=== PATIENT | male | born 1995 | race Caucasian/White ===

== ENCOUNTER 2020-07-30 02:01 | Emergency (ER) | payer SELFPAY ==
--- OUTSIDE RECORDS SUMMARY | 2020-07-30 02:04 | XMS REPORT | Continuity of Care Document ---
:1995 Author Organization [facility] t Address [address] [place] [address] Care Team Providers Name Role Phone Kaleigh MONO, Imani Vergara Attending Clinician Doctor Unassigned, Name Attending Clinician Unavailable Problems This patient has no known problems. Allergies, Adverse Reactions, Alerts This patient has no known allergies or adverse reactions. Medications This patient has no known medications. Procedures This patient has no known procedures. Encounters Start End Encounter Admission Attending Care Care Encounter Source Date/Time Date/Time Type Type Clinicians Facility Department ID 2019-07-26 2019-07-26 Emergency [facility] [id number] 14:37:00 17:00:00 Imani Young [id number] [place] [id number] [place] [id number] 2019-07-26 2019-07-26 Orders Doctor SHANNON [id number] 00:00:00 00:00:00 Only UnassignedJOSIAH [id number] [place] [facility] [id number] Results This patient has no known results.
[2020-07-30] MEDS ORDERED: ASPIRIN EC 81 MG TAB PO ONE (03:25)
[2020-07-30 03:43] LABS: Absolute Lymphocytes (CBC) 3.5 K/uL (0.7-4.9); Basophils % 0.6 % (0-1.3); Hematocrit 37.9 % (39.6-49.0); MPV 9.5 fL (7.6-11.3); RBC Red Blood Cell Count 4.14 M/uL (4.33-5.43)
[2020-07-30] MEDS ORDERED: ALBUTEROL INHALER 60 PUFF/8 GM IH ONE (03:47)
[2020-07-30 04:00] LABS: ALT/SGPT 30 U/L (12-78); AST/SGOT 15 U/L (15-37); Albumin 3.5 g/dL (3.4-5.0); Alkaline Phosphatase 79 U/L (45-117); BUN Blood Urea Nitrogen 17 mg/dL (7-18); Bicarbonate 26 mmol/L (21-32); Bilirubin Direct 0.1 mg/dL (0-0.2); Bilirubin Total 0.4 mg/dL (0.2-1.0); Glucose Level 95 mg/dL (74-106); Magnesium 2.1 mg/dL (1.8-2.4); NT PRO-BNP 90 pg/mL (<125); Potassium 3.7 mmol/L (3.5-5.1); Protein, Total 7.1 g/dL (6.4-8.2); Sodium Level 142 mmol/L (136-145); Troponin (Emerg Dept Use Only) < 0.02 ng/mL (0.0-0.045)
[2020-07-30] MEDS ORDERED: AZITHROMYCIN 250 MG TAB ONE (04:16)
[2020-07-30 04:28] LABS: SARS-COV-2 RT PCR NEGATIVE (NEGATIVE)
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
--- NOTE | 2020-07-30 07:51 | RAD REPORT ---
EXAM DESCRIPTION: Bong Single View07/30/2020 3:27 am CLINICAL HISTORY: Cough COMPARISON: 2016 FINDINGS: The lungs appear clear of acute infiltrate. The heart is normal size IMPRESSION: No acute abnormalities displayed
--- NOTE | 2020-07-30 12:46 | EKG ---
Test Date: 2020-07-30 Test Time: 03:19:31 Clinical Evaluator: MEASUREMENT RESULTS: Intervals: Rate: 48 IN: 150 QRSD: 96 QT: 410 QTc: 366 Ball: P: 21 IN: 150 QRS: 14 T: 25 INTERPRETIVE STATEMENTS: Marked sinus bradycardia with sinus arrhythmia Abnormal ECG Compared to ECG 07/22/2016 03:42:06 Sinus rhythm no longer present Electronically Signed On 07-30-20 12:45:17 CDT by Jonatan lOivier
== END 2020-07-30 04:49 | disposition home or self-care (01) ==
LOC: ER 02:01
DX: J02.9 Acute pharyngitis, unspecified (principal); Z20.822 Contact with and (suspected) exposure to COVID-19; Z72.0 Tobacco use; Z71.6 Tobacco abuse counseling
CPT/HCPCS: 0240U; 36415; 71045; 80048; 80076; 83735; 83880; 84484; 85025; 85379; 87070; 87081; 93005; 99284

== ENCOUNTER 2021-10-08 11:34 | Emergency (ER) | payer SELFPAY ==
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
[2021-10-08 13:05] LABS: Absolute Lymphocytes (CBC) 2.5 K/uL (0.7-4.9); Hematocrit 40.7 % (39.6-49.0); Lymphocytes % 23.3 % (15.3-44.8); MPV 8.9 fL (7.6-11.3)
[2021-10-08 13:17] LABS: Potassium 3.9 mmol/L (3.5-5.1)
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
[2021-10-08 14:32] VITALS: BP 148/80; TEMP 98.1; O2SAT 97
--- NOTE | 2021-10-10 08:58 | EKG ---
Test Date: 2021-10-08 Test Time: 13:42:47 Food Service Lead: [place]IGH MEASUREMENT RESULTS: Intervals: Rate: 53 AL: 146 QRSD: 96 QT: 426 QTc: 399 [place]: P: 25 AL: 146 QRS: 13 T: 36 INTERPRETIVE STATEMENTS: Sinus bradycardia with sinus arrhythmia Otherwise normal ECG Compared to ECG 07/30/2020 03:19:31 No significant changes Electronically Signed On 10-10-21 08:55:36 CDT by Jonatan Olivier
== END 2021-10-08 13:55 | disposition home or self-care (01) ==
LOC: ER 11:34
DX: R42 Dizziness and giddiness (principal); R03.0 Elevated blood-pressure reading, without diagnosis of hypertension; F17.210 Nicotine dependence, cigarettes, uncomplicated
CPT/HCPCS: 36415; 80048; 85025; 93005; 99283

== ENCOUNTER 2021-11-10 18:05 | Emergency (ER) | payer SELFPAY ==
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
[2021-11-10 21:01] VITALS: BP 121/57; TEMP 98.4; O2SAT 97
== END 2021-11-10 20:40 | disposition left against medical advice (07) ==
LOC: ER 18:05
DX: M54.2 Cervicalgia (principal); R51.9 Headache, unspecified; Z53.21 Procedure and treatment not carried out due to patient leaving prior to being seen by health care provider

== ENCOUNTER 2021-12-23 13:03 | Emergency (ER) | payer SELFPAY ==
--- OUTSIDE RECORDS SUMMARY | 2021-12-23 13:06 | XMS REPORT | Continuity of Care Document ---
:1995 Author Organization [facility] t Address [address] [place] [address] Care Team Providers Name Role Phone Pcp, Patient Does Not Have A Primary Care Physician [id number] DB ELLIS Attending Clinician Unavailable Db Ellis MD Attending Clinician Zainab Farris NP Attending Clinician ZAINAB FARRIS Attending Clinician Unavailable Doctor Unassigned, Severy Attending Clinician Unavailable ZAINAB FARRIS Admitting Clinician Unavailable Problems Condition Condition Condition Status Onset Resolution Last Treating Co mments Source Name Details Category Date Date Treatment Clinician Date No known No known Disease Unive rs active active ity of problems problems [facility] Allergies, Adverse Reactions, Alerts Allergy Allergy Status Severity Reaction(s) Onset Inactive Treating Comm ents Source Name Type Date Date Clinician NO KNOWN Drug Active Univers ALLERGIE Class ity of S [facility] Social History Social Habit Start Date Stop Date Quantity Comments Source Exposure to 2021-11-06 2021-11-16 Not sure [facility] SARS-CoV-2 (event) 00:00:00 03:13:00 Medica l Branch Sex Ass[birth year] [facility] [place] 00:00:00 00:00:00 Medical Branch Smoking Status Start Date Stop Date Source Tobacco smoking consumption Univ [facility] unknown Branch Medications Ordered Filled Start Stop Current Ordering Indication Dosage Frequency Signature Comments Components Source Medication Medication Date Date Medication? Clinician (SIG) Name Name amoxicillin Yes [id number] 500mg Take 1 Univers 500 mg 7-25 capsule by ity of capsule 00:00: mouth in [place] 00 the Medical morning Branch and 1 capsule at noon and 1 capsule in the evening. ibuprofen Yes [id number] 800mg Take 1 Univers 800 mg 7-25 tablet by ity of tablet 00:00: mouth [place] 00 every 8 Medical (eight) Branch hours as needed for Pain (scale 4-6). cephALEXin 2019- No [id number] 500mg Take 1 Univers (KEFLEX) 07-25 [id number] capsule by it y of 500 mg 00:00: 04:59 mouth 3 [place] capsule 00 :00 (three) Medical times Branch daily for 4 days. ibuprofen 2019- No [id number] 800mg Take 1 Univers 800 mg 07-25 [id number] tablet by ity o f tablet 00:00: 04:59 mouth 3 [place] 00 :00 (three) Medical times Branch daily with meals for 4 days. traMADOL Yes [id number] 50mg Take 1 Uni vers (ULTRAM) 50 4-11 tablet by ity of mg tablet 00:00: mouth [place] 00 every 6 Medical (six) Branch hours as needed for Pain (scale 4-6). traMADOL 2019- No [id number] 50mg Take 1 Un tabitha (ULTRAM) 50 4-11 04-02 tablet by it y of mg tablet 00:00: 00:00 mouth [place] 00 :00 every 6 Medical (six) Branch hours as needed for Pain (scale 4-6). Immunizations Ordered Filled Immunization Date Status Comments [facility] e Immunization Name Name Td 2015-05-11 Completed University 00:00:00 [facility] Td 2015-05-11 Completed University 00:00:00 [facility] Td 2015-05-11 Completed [facility] 00:00:00 [facility] Vital Signs Vital Name Observation Time Observation Value Comments Source Systolic blood 2021-11-16 08:14:00 155 mm[Hg] Univer sity of pressure [facility] Diastolic blood 2021-11-16 08:14:00 91 mm[Hg] Unive rsity of pressure [facility] Heart rate 2021-11-16 08:14:00 63 /min [facility] [place] [facility] Body temperature 2021-11-16 08:14:00 36.5 Mireya [facility] [place] [facility] Respiratory rate 2021-11-16 08:14:00 18 /min [facility] [place] [facility] Body height 2021-11-16 08:14:00 190.5 cm [facility] [place] [facility] Body weight 2021-11-16 08:14:00 131.09 kg [facility] [place] [facility] BMI 2021-11-16 08:14:00 36.12 kg/m2 [facility] [place] [facility] Oxygen saturation in 2021-11-16 08:14:00 98 /min University of Arterial blood by [place] [employer] leon Pulse oximetry Branch Systolic blood 2019-07-26 21:40:00 149 mm[Hg] Univer sity of pressure [place] [facility] Diastolic blood 2019-07-26 21:40:00 95 mm[Hg] Unive rsity of pressure [place] [facility] Heart rate 2019-07-26 21:40:00 76 /min [facility] [place] [facility] Respiratory rate 2019-07-26 21:40:00 18 /min [facility] [place] [facility] Oxygen saturation in 2019-07-26 21:40:00 96 /min University of Arterial blood by [place] [employer] leon Pulse oximetry Branch Body temperature 2019-07-26 19:34:00 36.78 Mireya [facility] [place] [facility] Body weight 2019-07-26 19:34:00 127.007 kg [facility] [place] [facility] BMI 2019-07-26 19:34:00 35.95 kg/m2 [facility] [place] [facility] Systolic blood 2019-07-26 21:40:00 149 mm[Hg] Univer sity of pressure [place] [facility] Diastolic blood 2019-07-26 21:40:00 95 mm[Hg] Unive rsity of pressure [place] [facility] Heart rate 2019-07-26 21:40:00 76 /min [facility] [place] [facility] Respiratory rate 2019-07-26 21:40:00 18 /min [facility] [place] [facility] Oxygen saturation in 2019-07-26 21:40:00 96 /min University of Arterial blood by [place] [employer] leon Pulse oximetry Branch Body temperature 2019-07-26 19:34:00 36.78 Mireya [facility] Body weight 2019-07-26 19:34:00 127.007 kg [facility] BMI 2019-07-26 19:34:00 35.95 kg/m2 [facility] Procedures Procedure Date / Time Performed Performing Clinician [facility] e CONSENT/REFUSAL FOR 2021-11-16 08:11:01 Doctor Unassigned, No [facility] [place] DIAGNOSIS AND Name [facility] TREATMENT XR HAND 3+ VW LEFT 2019-07-26 20:10:54 Zainab Farris [facility] CONSENT/REFUSAL FOR 2019-07-26 19:24:53 Doctor Unassigned, No [facility] [place] DIAGNOSIS AND Name [facility] TREATMENT NOTICE OF PRIVACY 2019-07-26 19:24:37 Doctor Unassigned, No [facility] PRACTICES Name [facility] Encounters Start End Encounter Admission Attending Care Care Encounter Source Date/Time Date/Time Type Type Clinicians Facility Department ID 2021-11-16 2021-11-16 Emergency X [facility] ERT [id number] Univers 03:19:00 03:56:00 DB dickson [facility] [place] [facility] 2021-11-16 2021-11-16 Emergency [facility] [id number] Univers 03:19:00 03:56:00 Indyjinagreer Oneill CRIS [id number] ity of [facility] [id number] [facility] [id number] [place] [address] Branch 2019-07-26 2019-07-26 Emergency [facility] [id number] 14:37:00 17:00:00 Zainab Young [id number] [place] [id number] [place] [address] [id number] 2019-07-26 2019-07-[address] [facility] ERT [id number] Univers 14:37:00 17:00:00 ZAINAB dickson [facility] [place] [facility] 2019-07-26 2019-07-26 Emergency [facility] [id number] Univers 14:37:00 17:00:00 Zainab Young [id number] ity of [place] [id number] [facility] [id number] [facility] 084 Branch 2019-07-26 2019-07-26 Orders Doctor MIRTHA [id number] 00:00:00 00:00:00 Only Unassigned, JOSIAH [id number] [place]very [facility] [id number] 2019-07-26 2019-07-26 Orders Doctor MIRTHA [id number] Univers 00:00:00 00:00:00 Only Unassigned, JOSIAH [id number] ity of [place] [facility] [id number] [facility] [id number] [facility] 009 Branch Results Test Description Test Time Test Comments Results Result [facility] e Comments XR HAND 3+ VW 2019-07-26 HISTORY: Rule out Univ ersity of LEFT 20:21:16 foreign body. [place] Medic al FINDINGS: AP, Branch lateral, oblique [...]
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
[2021-12-23 15:54] VITALS: BP 114/86; TEMP 99.8
[2021-12-23 15:56] VITALS: O2SAT 99
== END 2021-12-23 14:58 | disposition home or self-care (01) ==
LOC: ER 13:03
DX: U07.1 COVID-19 (principal); F17.210 Nicotine dependence, cigarettes, uncomplicated
CPT/HCPCS: 87804; U0003

== ENCOUNTER 2021-12-30 01:36 | Emergency (ER) | payer SELFPAY ==
--- OUTSIDE RECORDS SUMMARY | 2021-12-30 01:40 | XMS REPORT | Continuity of Care Document ---
:1995 Author Organization [facility] t Address [address] [place] [address] Care Team Providers Name Role Phone Pcp, Patient Does Not Have A Primary Care Physician [id number] DB ELLIS Attending Clinician Unavailable Db Ellis MD Attending Clinician Zainab Farris NP Attending Clinician ZAINAB FARRIS Attending Clinician Unavailable Doctor Unassigned, [place] Attending Clinician Unavailable ZAINAB FARRIS Admitting Clinician Unavailable Problems Condition Condition Condition Status Onset Resolution Last Treating Co mments Source Name Details Category Date Date Treatment Clinician Date No known No known Disease Unive rs active active ity of problems problems [facility] Allergies, Adverse Reactions, Alerts Allergy Allergy Status Severity Reaction(s) Onset Inactive Treating Comm ents Source Name Type Date Date Clinician NO KNOWN Drug Active Univers ALLERGIE Class ity of S [facility] Social History Social Habit Start Date Stop Date Quantity Comments Source Exposure to 2021-11-06 2021-11-16 Not sure [facility] SARS-CoV-2 (event) 00:00:00 03:13:00 Medica l Branch Sex Ass[birth year] [facility] [place] 00:00:00 00:00:00 Medical Branch Smoking Status Start Date Stop Date Source Tobacco smoking consumption Univ [facility] unknown Branch Medications Ordered Filled Start Stop Current Ordering Indication Dosage Frequency Signature Comments Components Source Medication Medication Date Date Medication? Clinician (SIG) Name Name amoxicillin Yes [id number] 500mg Take 1 Univers 500 mg 7-25 capsule by ity of capsule 00:00: mouth in [place] 00 the Medical morning Branch and 1 capsule at noon and 1 capsule in the evening. ibuprofen Yes [id number] 800mg Take 1 Univers 800 mg 7-25 tablet by ity of tablet 00:00: mouth [place] 00 every 8 Medical (eight) Branch hours as needed for Pain (scale 4-6). cephALEXin 2019- No [id number] 500mg Take 1 Univers (KEFLEX) 07-25 [id number] capsule by it y of 500 mg 00:00: 04:59 mouth 3 [place] capsule 00 :00 (three) Medical times Branch daily for 4 days. ibuprofen 2019- No [id number] 800mg Take 1 Univers 800 mg 07-25 [id number] tablet by ity o f tablet 00:00: 04:59 mouth 3 [place] 00 :00 (three) Medical times Branch daily with meals for 4 days. traMADOL Yes [id number] 50mg Take 1 Uni vers (ULTRAM) 50 4-11 tablet by ity of mg tablet 00:00: mouth [place] 00 every 6 Medical (six) Branch hours as needed for Pain (scale 4-6). traMADOL 2019- No [id number] 50mg Take 1 Un tabitha (ULTRAM) 50 4-11 04-02 tablet by it y of mg tablet 00:00: 00:00 mouth [place] 00 :00 every 6 Medical (six) Branch hours as needed for Pain (scale 4-6). Immunizations Ordered Filled Immunization Date Status Comments [facility] e Immunization Name Name Td 2015-05-11 Completed University 00:00:00 [facility] Td 2015-05-11 Completed University 00:00:00 [facility] Td 2015-05-11 Completed [facility] 00:00:00 [facility] Vital Signs Vital Name Observation Time Observation Value Comments Source Systolic blood 2021-11-16 08:14:00 155 mm[Hg] Univer sity of pressure [facility] Diastolic blood 2021-11-16 08:14:00 91 mm[Hg] Unive rsity of pressure [facility] Heart rate 2021-11-16 08:14:00 63 /min [facility] [place] [facility] Body temperature 2021-11-16 08:14:00 36.5 Mireya [facility] [place] [facility] Respiratory rate 2021-11-16 08:14:00 18 /min [facility] [place] [facility] Body height 2021-11-16 08:14:00 190.5 cm [facility] [place] [facility] Body weight 2021-11-16 08:14:00 131.09 kg [facility] [place] [facility] BMI 2021-11-16 08:14:00 36.12 kg/m2 [facility] [place] [facility] Oxygen saturation in 2021-11-16 08:14:00 98 /min University of Arterial blood by [place] [employer] [facility] Pulse oximetry Branch Systolic blood 2019-07-26 21:40:00 149 mm[Hg] Univer sity of pressure [place] [facility] Diastolic blood 2019-07-26 21:40:00 95 mm[Hg] Unive rsity of pressure [place] [facility] Heart rate 2019-07-26 21:40:00 76 /min [facility] [place] [facility] Respiratory rate 2019-07-26 21:40:00 18 /min [facility] [place] [facility] Oxygen saturation in 2019-07-26 21:40:00 96 /min University of Arterial blood by [place] [employer] [facility] Pulse oximetry Branch Body temperature 2019-07-26 19:34:00 36.78 Mireya [facility] [place] [facility] Body weight 2019-07-26 19:34:00 127.007 kg [facility] [place] [facility] BMI 2019-07-26 19:34:00 35.95 kg/m2 [facility] [place] [facility] Systolic blood 2019-07-26 21:40:00 149 mm[Hg] Univer sity of pressure [place] [facility] Diastolic blood 2019-07-26 21:40:00 95 mm[Hg] Unive rsity of pressure [place] [facility] Heart rate 2019-07-26 21:40:00 76 /min [facility] [place] [facility] Respiratory rate 2019-07-26 21:40:00 18 /min [facility] [place] [facility] Oxygen saturation in 2019-07-26 21:40:00 96 /min University of Arterial blood by [place] [employer] [facility] Pulse oximetry Branch Body temperature 2019-07-26 19:34:00 36.78 [facility] Body weight 2019-07-26 19:34:00 127.007 kg [facility] BMI 2019-07-26 19:34:00 35.95 kg/m2 [facility] Procedures Procedure Date / Time Performed Performing Clinician [facility] e CONSENT/REFUSAL FOR 2021-11-16 08:11:01 Doctor Unassigned, No [facility] [place] DIAGNOSIS AND Name [facility] TREATMENT XR HAND 3+ VW LEFT 2019-07-26 20:10:54 Zainab Farris [facility] CONSENT/REFUSAL FOR 2019-07-26 19:24:53 Doctor Unassigned, No [facility] [place] [facility] AND Name [facility] TREATMENT NOTICE OF PRIVACY 2019-07-26 19:24:37 Doctor Unassigned, No [facility] PRACTICES Name [facility] Encounters Start End Encounter Admission Attending Care Care Encounter Source Date/Time Date/Time Type Type Clinicians Facility Department ID 2021-11-16 2021-11-16 Emergency X [facility] ERT [id number] Univers 03:19:00 03:56:00 DB dickson [facility] 2021-11-16 2021-11-16 Emergency [facility] [id number] Univers 03:19:00 03:56:00 Indyjinagreer Oneill CRIS [id number] ity of [facility] [id number] [facility] [id number] [place] [address] Branch 2019-07-26 2019-07-26 Emergency [facility] [id number] 14:37:00 17:00:00 Zainab oYung [id number] [place] [id number] [place] [address] [id number] 2019-07-26 2019-07-26 Emergency X [facility] ERT [id number] Univers 14:37:00 17:00:00 ZAINAB dickson [facility] 2019-07-26 2019-07-26 Emergency [facility] [id number] Univers 14:37:00 17:00:00 Zainab Young [id number] ity of [place] [id number] [facility] [id number] [facility] 084 Branch 2019-07-26 2019-07-26 Orders Doctor MIRTHA [id number] 00:00:00 00:00:00 Only Unassigned, JOSIAH [id number] [place] [facility] [id number] 2019-07-26 2019-07-26 Orders Doctor MIRTHA [id number] Univers 00:00:00 00:00:00 Only Unassigned, JOSIAH [id number] ity of [place] [facility] [id number] [facility] [id number] [facility] 009 Branch Results Test Description Test Time Test Comments Results Result [facility] e Comments XR HAND 3+ VW 2019-07-26 HISTORY: Rule out Univ ersity of LEFT 20:21:16 foreign body. [place] Medic al FINDINGS: AP, Branch lateral, oblique [...]
[2021-12-30] MEDS ORDERED: KETOROLAC 30 MG/ML INJ ONE (02:45)
[2021-12-30] MEDS ORDERED: ONDANSETRON 4 MG/2 ML VIAL ONE (02:45)
[2021-12-30] MEDS ORDERED: CEFTRIAXONE 2000 MG/VIAL ONE (02:45)
[2021-12-30] MEDS ORDERED: CLINDAMYCIN 900MG/D5W 900 MG/50 ML IVPB IV ONE (02:46)
[2021-12-30 02:54] LABS: Absolute Lymphocytes (CBC) 3.3 K/uL (0.7-4.9); Hematocrit 40.6 % (39.6-49.0); Lymphocytes % 23.2 % (15.3-44.8); MCV 91.2 fL (80-100); MPV 9.3 fL (7.6-11.3); RBC Red Blood Cell Count 4.45 M/uL (4.33-5.43)
[2021-12-30 03:05] LABS: Albumin 3.8 g/dL (3.4-5.0); Bilirubin Total 0.5 mg/dL (0.2-1.0); Potassium 3.7 mmol/L (3.5-5.1); Protein, Total 7.3 g/dL (6.4-8.2)
[2021-12-30] MEDS ORDERED: MORPHINE 4 MG/ML SYR ONE (04:07)
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
[2021-12-30 06:42] VITALS: TEMP 98.8
[2021-12-30 06:56] VITALS: BP 125/90; O2SAT 98
--- NOTE | 2021-12-30 12:31 | RAD REPORT ---
EXAM DESCRIPTION: CT - Facial Bones W Con Mpr - 12/30/2021 6:55 am CLINICAL HISTORY: The patient is 26 years old and is Male; FACIAL ABSCESS TECHNIQUE: Axial computed tomography images of the face with intravenous contrast. Sagittal and co bib reformatted images were created and reviewed. This CT exam was performed using one or more of the following dose reduction techniques: automated exposure control, adjustment of the mA and/or k V according to patient size, and/or use of iterative reconstruction technique. COMPARISON: No relevant prior studies available. FINDINGS: Bones/joints: Previous right cranial surgery. No acute fracture. Soft tissues: Left perimandibular soft tissue swelling/edema. No definite soft tissue abscess. Orbits: Unremarkable. Sinuses: Left maxillary sinus mucosal thickening. No air-fluid levels. Dental: Bilateral mandibular and maxillary dental caries. No definite cortical breakthrough. Right maxillary tooth extractions. IMPRESSION: 1. Left perimandibular soft tissue swelling/edema. No definite soft tissue abscess. 2. Bilateral mandibular and maxillary dental caries. No cortical breakthrough identified. 3. Left maxillary sinus mucosal thickening. 4. Previous right cranial surgery. Electronically signed by: Anh Stephens MD 12/30/2021 5:57 AM CDT Due to temporary technical issues with the PACS/Fluency reporting system, reports are being signed by the in house radiologists without review as a courtesy to insure prompt reporting. The interpreting radiologist is fully responsible for the content of the report.
== END 2021-12-30 05:14 | disposition home or self-care (01) ==
LOC: ER 01:36
DX: K02.7 Dental root caries (principal); K02.9 Dental caries, unspecified; D72.829 Elevated white blood cell count, unspecified; F17.210 Nicotine dependence, cigarettes, uncomplicated
CPT/HCPCS: 36415; 70487; 76377; 80053; 85025; 96374; 96375; 99284; J0696; J2405; Q9967

== ENCOUNTER 2022-12-16 20:30 | Emergency (ER) | payer SELFPAY ==
--- OUTSIDE RECORDS SUMMARY | 2022-12-16 20:33 | XMS REPORT | Continuity of Care Document ---
:1995 Author Organization [facility] t Address [address] [place]. [address] [place] [address] Care Team Providers Name Role Phone Pcp, Patient Does Not Have A Primary Care Physician +[phone] DB ELLIS Attending Clinician Unavailable Db Ellis MD Attending Clinician Zainab Farris NP Attending Clinician ZAINAB FARRIS Attending Clinician Unavailable Doctor Unassigned, Forbes Attending Clinician Unavailable ZAINAB FARRIS Admitting Clinician Unavailable Problems Condition Condition Condition Status Onset Resolution Last Treating Co mments Source Name Details Category Date Date Treatment Clinician Date No known No known Disease Unive rs active active ity of problems problems [facility] Allergies, Adverse Reactions, Alerts Allergy Allergy Status Severity Reaction(s) Onset Inactive Treating Comm ents Source Name Type Date Date Clinician NO KNOWN Drug Active Univers ALLERGIE Class ity of S [facility] Social History Social Habit Start Date Stop Date Quantity Comments Source Exposure to 2021-11-06 2021-11-16 Not sure [facility] SARS-CoV-2 (event) 00:00:00 03:13:00 Medica l Branch Sex Assigned At [birth year] [facility] [place] 00:00:00 00:00:00 Medical Branch Smoking Status Start Date Stop Date Source Tobacco smoking consumption Univ [facility] unknown Branch Medications Ordered Filled Start Stop Current Ordering Indication Dosage Frequency Signature Comments Components Source Medication Medication Date Date Medication? Clinician (SIG) Name Name amoxicillin Yes [id number] 500mg Take 1 Univers 500 mg 7-25 capsule by ity of capsule 00:00: mouth in [place] 00 the Medical morning Branch and 1 capsule at noon and 1 capsule in the evening. ibuprofen Yes [id number] 800mg Take 1 Univers 800 mg 7-25 tablet by ity of tablet 00:00: mouth [place] 00 every 8 Medical (eight) Branch hours as needed for Pain (scale 4-6). cephALEXin 2019- No [id number] 500mg Take 1 Univers (KEFLEX) 07-25 [id number] capsule by it y of 500 mg 00:00: 04:59 mouth 3 [place] capsule 00 :00 (three) Medical times Branch daily for 4 days. ibuprofen 2019- No [id number] 800mg Take 1 Univers 800 mg 07-25 [id number] tablet by ity o f tablet 00:00: 04:59 mouth 3 [place] 00 :00 (three) Medical times Branch daily with meals for 4 days. traMADOL Yes [id number] 50mg Take 1 Uni vers (ULTRAM) 50 4-11 tablet by ity of mg tablet 00:00: mouth [place] 00 every 6 Medical (six) Branch hours as needed for Pain (scale 4-6). traMADOL 2019- No [id number] 50mg Take 1 Un tabitha (ULTRAM) 50 4-11 04-02 tablet by it y of mg tablet 00:00: 00:00 mouth [place] 00 :00 every 6 Medical (six) Branch hours as needed for Pain (scale 4-6). Immunizations Ordered Filled Immunization Date Status Comments [facility] e Immunization Name Name Td 2015-05-11 Completed University 00:00:00 [facility] Td 2015-05-11 Completed University 00:00:00 [facility] Td 2015-05-11 Completed [facility] 00:00:00 [facility] Vital Signs Vital Name Observation Time Observation Value Comments Source Systolic blood 2021-11-16 08:14:00 155 mm[Hg] Univer sity of pressure [facility] Diastolic blood 2021-11-16 08:14:00 91 mm[Hg] Unive rsity of pressure [facility] Heart rate 2021-11-16 08:14:00 63 /min [facility] [place] [facility] Body temperature 2021-11-16 08:14:00 36.5 Mireya [facility] [place] [facility] Respiratory rate 2021-11-16 08:14:00 18 /min [facility] [place] [facility] Body height 2021-11-16 08:14:00 190.5 cm [facility] [place] [facility] Body weight 2021-11-16 08:14:00 131.09 kg [facility] [place] [facility] BMI 2021-11-16 08:14:00 36.12 kg/m2 [facility] [place] [facility] Oxygen saturation in 2021-11-16 08:14:00 98 /min University of Arterial blood by [place] [facility] leon Pulse oximetry Branch Systolic blood 2019-07-26 21:40:00 149 mm[Hg] Univer sity of pressure [place] [facility] Diastolic blood 2019-07-26 21:40:00 95 mm[Hg] Unive rsity of pressure [place] [facility] Heart rate 2019-07-26 21:40:00 76 /min [facility] [place] [facility] Respiratory rate 2019-07-26 21:40:00 18 /min [facility] [place] [facility] Oxygen saturation in 2019-07-26 21:40:00 96 /min University of Arterial blood by [place] [facility] leon Pulse oximetry Branch Body temperature 2019-07-26 19:34:00 36.78 Mireya [facility] [place] [facility] Body weight 2019-07-26 19:34:00 127.007 kg [facility] [place] [facility] BMI 2019-07-26 19:34:00 35.95 kg/m2 [facility] [place] [facility] Systolic blood 2019-07-26 21:40:00 149 mm[Hg] Univer sity of pressure [place] [facility] Diastolic blood 2019-07-26 21:40:00 95 mm[Hg] Unive rsity of pressure [place] [facility] Heart rate 2019-07-26 21:40:00 76 /min [facility] [place] [facility] Respiratory rate 2019-07-26 21:40:00 18 /min [facility] [place] [facility] Oxygen saturation in 2019-07-26 21:40:00 96 /min University of Arterial blood by [place] [facility] leon Pulse oximetry Branch Body temperature 2019-07-26 19:34:00 36.78 Mireya [facility] Body weight 2019-07-26 19:34:00 127.007 kg [facility] BMI 2019-07-26 19:34:00 35.95 kg/m2 [facility] Procedures Procedure Date / Time Performed Performing Clinician [facility] e CONSENT/REFUSAL FOR 2021-11-16 08:11:01 Doctor Unassigned, No [facility] [place] DIAGNOSIS AND Name [facility] TREATMENT XR HAND 3+ VW LEFT 2019-07-26 20:10:54 Zainab Farris [facility] CONSENT/REFUSAL FOR 2019-07-26 19:24:53 Doctor Unassigned, No [facility] [place] DI[facility] AND Name [facility] TREATMENT NOTICE OF PRIVACY 2019-07-26 19:24:37 Doctor Unassigned, No [facility] PRACTICES Name [facility] Encounters Start End Encounter Admission Attending Care Care Encounter Source Date/Time Date/Time Type Type Clinicians Facility Department ID 2021-11-16 2021-11-16 Emergency X [facility] ERT [id number] Univers 03:19:00 03:56:00 DB dickson [facility] 2021-11-16 2021-11-16 Emergency [facility] [id number] Univers 03:19:00 03:56:00 Indyjinagreer Oneill CRIS [id number] [facility] [id number] [facility] [id number] [place] [address] Branch 2019-07-26 2019-07-26 Emergency [facility] [id number] 14:37:00 17:00:00 Zainab Young [id number] [place] [id number] [place] [address] [id number] 2019-07-26 2019-07-26 Emergency X [facility] ERT [id number] Univers 14:37:00 17:00:00 ZAINAB dickson [facility] 2019-07-26 2019-07-26 Emergency [facility] [id number] Univers 14:37:00 17:00:00 Zainab Young [id number] ity of [place] [id number] [facility] [id number] [facility] 084 Branch 2019-07-26 2019-07-26 Orders Doctor MIRTHA [id number] 00:00:00 00:00:00 Only Unassigned, JOSIAH [id number] Forbes [facility] [id number] 2019-07-26 2019-07-26 Orders Doctor MIRTHA [id number] Univers 00:00:00 00:00:00 Only Unassigned, JOSIAH [id number] ity of [place] [facility] [id number] [facility] [id number] [facility] 009 Branch Results Test Description Test Time Test Comments Results Result [facility] e Comments XR HAND 3+ VW 2019-07-26 HISTORY: Rule out Univ ersity of LEFT 20:21:16 foreign body. [place] Medic al FINDINGS: AP, Branch lateral, oblique [...]
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
[2022-12-16 22:42] VITALS: BP 143/88; TEMP 98.8; O2SAT 99
== END 2022-12-16 22:02 | disposition home or self-care (01) ==
LOC: ER 20:30
DX: B00.1 Herpesviral vesicular dermatitis (principal); B00.9 Herpesviral infection, unspecified
CPT/HCPCS: 99283